=== PATIENT | female | born 1960 | race American Indian/Alaskan Native ===

== ENCOUNTER 2017-03-06 08:59 | Day surgery (SDC) | payer OTHER ==
[2017-03-06] MEDS ORDERED: NACL 0.9% 1000 ML 1,000 ML ONE (09:58)
[2017-03-06] MEDS ORDERED: NACL 0.9% 1000 ML 1,000 ML IV SCH (10:30)
--- NOTE | 2017-03-06 11:03 | Anesthesia Consultation ---
Anesthesia Consult and Med Hx Date of service: 03/06/17 - Airway Anesthetic Teeth Evaluation: Good ROM Head & Neck: Adequate Mental/Hyoid Distance: Adequate Mallampati Class: Class II Intubation Access Assessment: Probably Good - Pulmonary Exam CTA: Yes - Cardiac Exam Cardiac Exam: RRR - Pre-Operative Health Status ASA Pre-Surgery Classification: ASA3 Proposed Anesthetic Plan: MAC - Pulmonary Hx Smoking: No Hx Asthma: Yes (albuterol, breathing at her baseline)
--- NOTE | 2017-03-06 11:03 | Anesthesia Day of Surgery ---
Anesthesia Day of Surgery - Day of Surgery Patient Examined: Yes Patient H&P Reviewed: Yes Patient is NPO: Yes
[2017-03-06] MEDS ORDERED: DIPRIVAN 10 MG/ML IV ONE ×2 (14:03)
[2017-03-06] MEDS ORDERED: WATER FOR IRRIG STERILE IR ONE (14:03)
[2017-03-06] MEDS ORDERED: WATER FOR IRRIG STERILE ONE (14:04)
[2017-03-06 15:02] VITALS: BP 118/59
--- NOTE | 2017-03-06 15:27 | Operative Report ---
Operative Report Operative Report: Date of procedure: 03/06/2017 Procedure: Colonoscopy with ablation, snare polypectomy, submucosal injection and hot biopsy polypectomy also multiple hemoclip applications. Attending physician: Lucas Sen MD Product Support Sales Representative: Lucas Sen MD Indication: Patient is a 56-year-old female who presents for screening colonoscopy. A colonoscopy serves to evaluate patient for colorectal cancer screening. Consent: Informed consent was obtained after advising the patient and family regarding nature of this procedure, its indications, potential benefits as well as possible complications including but not limited to bleeding perforation and adverse reaction to medication, infection as well as other cardiopulmonary complications. An informed written and verbal consent was then obtained after due opportunity was provided for questions and answers. Monitoring: Patient was monitored continuously with pulse oximetry and electrocardiographic recordings as well as blood pressure recordings. Vital signs remained stable throughout this procedure with no untoward events. Preoperative assessment: Patient was assessed immediately prior to this procedure for capacity to tolerate monitored anesthesia care and moderate sedation as well as general anesthesia. Patient's ASA classification is 2, Mallampati class is 2, Hyomental distance is 3. Instrument: [employer] video colonoscope Medications: Propofol given intravenously in divided doses. For details please refer to anesthesia records. Description of procedure: Patient was placed in the left lateral decubitus position after achieving sedation, a digital rectal examination was performed following which the colonoscope was introduced into the anal verge and advanced to the cecum which was identified by the cecal valve, the appendiceal orifice, as well as by the cecal strap and direct transillumination. The colonoscope was subsequently withdrawn with careful inspection of all mucosal surfaces. Patient tolerated this procedure well and was subsequently taken to the recovery room. The following findings were noted. Findings: There were a few scattered diverticula in the sigmoid colon and also in the ascending colon. There was a flat diminutive polyp in the cecum which was ablated. Subsequently, a Hemoclip was applied over the defect. There was a sessile polyp in the descending colon which was elevated with submucosal injection of saline and removed by snare electrocautery and retrieved and a Hemoclip was applied over the defect . There was a diminutive sessile polyp in the sigmoid colon which was removed by hot biopsy polypectomy and retrieved. There were also 2 diminutive flat polyps in the rectum that were ablated. On the retroflex view at the anal verge, patient had internal hemorrhoids. Impression: Mild diverticulosis. Cecal polyp and rectal polyps status post ablation. Descending colon polyp status post snare polypectomy Sigmoid colon polyp status post hot biopsy polypectomy Internal hemorrhoids. Plan: Follow pathology report High-fiber diet. Repeat colonoscopy in 5 years.
--- NOTE | 2017-03-06 15:28 | Discharge Summary ---
Short Stay Discharge Plan Activity: advance as tolerated Weight Bearing Status: Weight Bear as Tolerated Diet: regular Additional Instructions: Post Sedation D/C Instructions When you return home you may resume your regular diet unless otherwise directed. -Go directly home from the hospital and rest quietly. You may resume normal activities tomorrow. -Do NOT drive, return to work, operate any machinery or make any important personal or business decisions today. -Do NOT drink any alcohol or take nerve or sleeping drugs. They add to the effects of the medicine still present in your body. Follow up with Dr. Sen in 2 weeks to obtain pathology results and treatment plan. Follow up with: ANUJA CHRISTIANSON MD [Primary Care Provider] - 7 Days
--- NOTE | 2017-03-06 16:04 | Post Anesthesia Evaluation ---
- Post Anesthesia Evaluation Patient Participated: Yes Airway Patent: Yes Stable Respiratory Function: Yes Nausea/Vomiting: No Temp > 96.8F: Yes Pain Manageable: Yes Adequeate Hydration: Yes Anesthesia Complications: No
== END 2017-03-06 09:00 | disposition home or self-care (01) ==
LOC: GIO 08:59
PROVIDERS: ATTEND Internal Medicine Gastroenterology
DX: Z12.11 Encounter for screening for malignant neoplasm of colon (principal); K63.5 Polyp of colon; K64.8 Other hemorrhoids; K57.30 Diverticulosis of large intestine without perforation or abscess without bleeding; J45.909 Unspecified asthma, uncomplicated; Z90.710 Acquired absence of both cervix and uterus
CPT/HCPCS: 45384; 45388; 45390; 88305; J2704; J7030